=== PATIENT | male | born 1950 | race Caucasian/White ===

== ENCOUNTER 2024-07-21 14:46 | Emergency (ER) | payer MEDICARE, BC, SELFPAY ==
[2024-07-21 14:55] VITALS: BP 167/81; PULSE 89; RESP 20; TEMP 37.2; O2SAT 96; BMI 27.3
--- NOTE | 2024-07-21 15:04 | DI.RAD.S_ITS ---
PROCEDURE: XR CHEST 1V INDICATIONS: Shortness of breath TECHNIQUE: One view of the chest was acquired. COMPARISON: None. FINDINGS: Surgical changes and devices: leadless pacer. Lungs and pleura: Lungs are clear. No pleural effusions or pneumothorax. Mediastinum: Mediastinal contours appear normal. Heart size is normal. Bones and chest wall: No suspicious bony lesions. Overlying soft tissues appear unremarkable. IMPRESSION: No acute cardiopulmonary abnormality is seen. Dictated by: zE Payan M.D. on 07/21/2024 at 15:51 Approved by: Ez Payan M.D. on 07/21/2024 at 15:52
--- NOTE | 2024-07-21 15:04 | EKG_ITS ---
[address] [address] Test Date: 2024-07-21 Pat Name: Carlos Barajas Department: Room: Gender: Male [employer]: : 1950 Requested By: Order Number: [id number] Reading MD: Geoff Bautista MD Measurements Intervals [place] Rate: 91 P: 51 TX: 196 QRS: -1 QRSD: 88 T: 120 QT: 364 QTc: 447 Interpretive Statements Sinus rhythm with occasional premature ventricular complexes Left ventricular hypertrophy with repolarization abnormality ( R in aVL , Les product ) Cannot rule out Septal infarct , age undetermined NO PRIOR TRACING Electronically Signed On 07-22-2024 7:23:37 PDT by Geoff Bautista MD
--- NOTE | 2024-07-21 15:17 | ED_ITS ---
<Statement entered by Holly Rose PA-C - 07/21/24 19:06> Please see same day note by myself for full patient encounter. HPI - General Adult General Chief complaint: Shortness of Breath/Dyspnea Stated complaint: shakes, low oxygen, dizziness, fatigue Time Seen by Provider: 07/21/24 15:17 Mode of arrival: Ambulatory Related Data Home Medications Medication Instructions Recorded Confirmed atorvastatin 20 mg tablet 20 mg PO DAILY 07/21/24 07/21/24 finasteride 5 mg tablet 5 mg PO DAILY 07/21/24 07/21/24 losartan 50 mg tablet 50 mg PO DAILY 07/21/24 07/21/24 metoprolol succinate 25 mg 25 mg PO DAILY 07/21/24 07/21/24 tablet,extended release 24 hr prednisone 1 mg tablet 4 mg PO DAILY 07/21/24 07/21/24 tamsulosin 0.4 mg capsule mg PO 07/21/24 07/21/24 Previous Rx's Medication Instructions Recorded cefuroxime axetil 500 mg tablet 500 mg PO Q12H 7 days #14 tabs 07/21/24 doxycycline hyclate 100 mg tablet 100 mg PO BID 7 days #14 tabs 07/21/24 Allergies Allergy/AdvReac Type Severity Reaction Status Date / Time Penicillins AdvReac Intermediate Rash Verified 07/21/24 18:11 Patient History Social History Smoking Status: Former smoker Smoking Status: Former smoker Exam Initial Vital Signs Initial Vital Signs: Vital Signs Temperature 99 F 07/21/24 14:55 Pulse Rate 89 07/21/24 14:55 Respiratory Rate 20 07/21/24 14:55 Blood Pressure 167/81 H 07/21/24 14:55 Pulse Oximetry 96 07/21/24 14:55 Oxygen Delivery Method Room Air 07/21/24 14:55 Course Course Course Narrative: Pt was evaluated in [facility] initially by PRIMITIVO Barry and supervised by Dr. Duarte in the ED. Please see separate note for this encounter. Bo Shah MD Orders Ordered: Discontinued Medications Acetaminophen (Acetaminophen 325 Mg Tablet) 975 mg PO NOW ONE Stop: 07/21/24 16:21 Last Admin: 07/21/24 16:46 Dose: 975 mg Documented By: SB Cefuroxime Axetil (Cefuroxime 250 Mg Tablet) 500 mg PO NOW ONE Stop: 07/21/24 18:06 Last Admin: 07/21/24 18:14 Dose: 500 mg Documented By: ENRRIQUE Doxycycline Hyclate (Doxycycline Hyclate 100 Mg Tablet) 100 mg PO NOW ONE Stop: 07/21/24 18:06 Last Admin: 07/21/24 18:18 Dose: 100 mg Documented By: ENRRIQUE Vital Signs Vital signs: Vital Signs - 8 hr 07/21/24 14:55 Temperature 99 F Pulse Rate 89 Respiratory Rate 20 Blood Pressure 167/81 H Pulse Oximetry 96 Oxygen Delivery Method Room Air Medical Decision Making Lab Data 07/21/24 15:15 07/21/24 15:15 Labs: Lab Results 07/21/24 07/21/24 07/21/24 Range/Units 15:15 15:30 16:54 WBC 11.8 H (4.5-11.0) X10^3/uL RBC 4.14 L (4.5-5.9) X10^6/uL Hgb 14.5 (13.5-17.5) g/dL Hct 42.8 (41-53) % MCV 103.5 H (80-100) fL MCH 35.1 H (26-34) PG MCHC 33.9 (30-36) % RDW 13.3 (11.6-14.8) % Plt Count 139 L (150-400) X10^3/uL Neut % (Auto) 85.5 H (50-75) % Lymph % (Auto) 7.2 L (25-40) % [place] % (Auto) 5.8 (3-14) % Eos % (Auto) 1.2 L (2-4) % Baso % (Auto) 0.3 (0-2) % Neut # (Auto) 51135 H (2173-5334) /uL Lymph # (Auto) 800 L (7320-1817) /uL [place] # (Auto) 700 (0-900) /uL Eos # (Auto) 100 (0-450) /uL Baso # (Auto) 0 (0-100) /uL PT 13.5 H (9.4-12.5) SECONDS INR 1.2 (0.9-1.3) D-Dimer 522 H (<500) ng/ml Sodium 139 (137-145) mmol/L Potassium 4.6 (3.4-5.1) mmol/L Chloride 104 (98-107) mmol/L Carbon Dioxide 25 (22-32) mmol/L BUN 24 H (9-20) mg/dL Creatinine 1.07 (0.66-1.25) mg/dL Estimated GFR > 60 (>60) mL/min BUN/Creatinine Ratio 22.4 H (6-22) Glucose 100 H (70-99) mg/dL Lactate 1.7 (0.7-2.1) mmol/L Calcium 9.5 (8.4-10.2) mg/dL Total Bilirubin 1.9 H (0.2-1.3) mg/dL AST 36 (17-59) IU/L ALT 31 (<50) IU/L Alkaline Phosphatase 53 (38-126) U/L Troponin I < 0.012 (0.01-0.034) ng/mL NT-Pro-B Natriuret Pep 972 H (<450) pg/mL Total Protein 7.6 (6.3-8.2) g/dL Albumin 4.7 (3.5-5.0) g/dL Globulin 2.9 (1.7-4.1) g/dL Albumin/Globulin Ratio 1.6 (1.0-2.8) Urine Color Yellow Urine Appearance Clear Urine pH 5.5 (4.5-8.0) Ur Specific [place] 1.025 (1.000-1.035) Urine Protein Negative (Negative) Urine Glucose (UA) Negative (Negative) g/dL Urine Ketones 1+ H (NEGATIVE) Urine Occult Blood Negative (Negative) Urine Nitrate Negative (Negative) Urine Bilirubin Negative (NEGATIVE) Urine Urobilinogen 0.2 (0.2) E.U./dL Ur Leukocyte Esterase Negative (NEGATIVE) Urine RBC None seen (0-5/HPF) Urine WBC 0-1/hpf (0-5/HPF) Ur Squamous Epith Cells 0-1 /hpf (0-5/HPF) Urine Bacteria None seen (None) Ur Culture Indicated? Cult not indicated Vol Urine Centrifuged 10ml (spun) SARS-CoV-2 (PCR) Negative (Negative) Influenza A (RT-PCR) Flu a negative (NEGATIVE) Influenza B (RT-PCR) Flu b negative (NEGATIVE) RSV (PCR) Negative (Negative) 07/21/24 Range/Units 17:31 WBC (4.5-11.0) X10^3/uL RBC (4.5-5.9) X10^6/uL Hgb (13.5-17.5) g/dL Hct (41-53) % MCV (80-100) fL MCH (26-34) PG MCHC (30-36) % RDW (11.6-14.8) % Plt Count (150-400) X10^3/uL Neut % (Auto) (50-75) % Lymph % (Auto) (25-40) % [place] % (Auto) (3-14) % Eos % (Auto) (2-4) % Baso % (Auto) (0-2) % Neut # (Auto) (1743-8922) /uL Lymph # (Auto) (0751-7679) /uL [place] # (Auto) (0-900) /uL Eos # (Auto) (0-450) /uL Baso # (Auto) (0-100) /uL PT (9.4-12.5) SECONDS INR (0.9-1.3) D-Dimer (<500) ng/ml Sodium (137-145) mmol/L Potassium (3.4-5.1) mmol/L Chloride (98-107) mmol/L Carbon Dioxide (22-32) mmol/L BUN (9-20) mg/dL Creatinine (0.66-1.25) mg/dL Estimated GFR (>60) mL/min BUN/Creatinine Ratio (6-22) Glucose (70-99) mg/dL Lactate (0.7-2.1) mmol/L Calcium (8.4-10.2) mg/dL Total Bilirubin (0.2-1.3) mg/dL AST (17-59) IU/L ALT (<50) IU/L Alkaline Phosphatase (38-126) U/L Troponin I 0.012 (0.01-0.034) ng/mL NT-Pro-B Natriuret Pep (<450) pg/mL Total Protein (6.3-8.2) g/dL Albumin (3.5-5.0) g/dL Globulin (1.7-4.1) g/dL Albumin/Globulin Ratio (1.0-2.8) Urine Color Urine Appearance Urine pH (4.5-8.0) Ur Specific [place] (1.000-1.035) Urine Protein (Negative) Urine Glucose (UA) (Negative) g/dL Urine Ketones (NEGATIVE) Urine Occult Blood (Negative) Urine Nitrate (Negative) Urine Bilirubin (NEGATIVE) Urine Urobilinogen (0.2) E.U./dL Ur Leukocyte Esterase (NEGATIVE) Urine RBC (0-5/HPF) Urine WBC (0-5/HPF) Ur Squamous Epith Cells (0-5/HPF) Urine Bacteria (None) Ur Culture Indicated? Vol Urine Centrifuged SARS-CoV-2 (PCR) (Negative) Influenza A (RT-PCR) (NEGATIVE) Influenza B (RT-PCR) (NEGATIVE) RSV (PCR) (Negative) ECG Data Attestation: I personally reviewed and interpreted this ECG as follows: (1509 - NSR @ 91; occasional PVC; LVH, nonspecific STTW changes; QTc 447) Discharge Plan Departure Patient Disposition: Home Clinical Impression: Elevated brain natriuretic peptide (BNP) level Pneumonia Qualifiers: Pneumonia type: due to unspecified organism Laterality: bilateral Lung location: unspecified part of lung Qualified Code(s): J18.9 - Pneumonia, unspecified organism Instructions: DI for Pneumonia -- Adult Activity Restrictions/Additional Instructions: Dear Callie Karl, Thank you for coming to the emergency department. Today we obtained a CT scan of your chest which revealed pneumonia in both lungs. Please complete the full 7 day course of antibiotics to treat this infection. Your workup today also revealed some chronic abnormalities such as an elevated BNP level and coronary artery calcifications. It is very important to follow up with a primary care doctor who may refer you to a supervisor carding for further evaluation and chronic management. Please return to the emergency department immediately if you develop any new or worsening symptoms, chest pain, difficulty breathing, or other concerns. In addition to your prescriptions, please rest, hydrate, use ibuprofen and/or acetaminophen if needed for pain. Your antibiotics have been sent to [facility] pharmacy. Please follow up with your primary care doctor within the next 2-3 days for ER follow-up. (If you do not have a PCP you can call [phone]. to schedule an appointment with an [facility] Primary Care Provider) IF YOU DEVELOP ANY NEW OR WORSENING SYMPTOMS, RETURN TO THE ER! Please read the attached instructions, they highlight more specific treatments and interventions for you at home. Thank you for letting me participate in your care, Holly Rose PA-C Prescriptions: New doxycycline hyclate 100 mg tablet 100 mg PO BID 7 Days Qty: 14 0RF cefuroxime axetil 500 mg tablet 500 mg PO Q12H 7 Days Qty: 14 0RF No Action atorvastatin 20 mg tablet 20 mg PO DAILY losartan 50 mg tablet 50 mg PO DAILY prednisone 1 mg tablet 4 mg PO DAILY metoprolol succinate 25 mg tablet extended release 24 hr 25 mg PO DAILY finasteride 5 mg tablet 5 mg PO DAILY tamsulosin 0.4 mg capsule PO Referrals: Miscellaneous,Doctor, MD [Primary Care Provider] - Stand Alone Forms: Patient Portal/API/Survey
[2024-07-21 15:23] LABS: Add Manual Diff / Slide Review NO; Basophils Absolute Auto 0 /uL (0-100); Basophils Percent Auto 0.3 % (0-2); Eosinophils Absolute Auto 100 /uL (0-450); Eosinophils Percent Auto 1.2 % (2-4); Hematocrit 42.8 % (41-53); Hemoglobin 14.5 g/dL (13.5-17.5); Lymphocytes Absolute Auto 800 /uL (1100-4500); Lymphocytes Percent Auto 7.2 % (25-40); Mean Corpuscular HGB Conc 33.9 % (30-36); Mean Corpuscular Hemoglobin 35.1 PG (26-34); Mean Corpuscular Volume 103.5 fL (80-100); Monocytes Absolute Auto 700 /uL (0-900); Monocytes Percent Auto 5.8 % (3-14); Neutrophils Absolute Auto 10100 /uL (1500-7000); Neutrophils Percent Auto 85.5 % (50-75); Platelet Count 139 X10^3/uL (150-400); Red Blood Cell Count 4.14 X10^6/uL (4.5-5.9); Red Cell Distribution Width 13.3 % (11.6-14.8); White Blood Cell Count 11.8 X10^3/uL (4.5-11.0)
[2024-07-21 15:32] LABS: INR 1.2 (0.9-1.3); Prothrombin Time 13.5 SECONDS (9.4-12.5)
[2024-07-21 15:37] LABS: Lactate (Lactic Acid) 1.7 mmol/L (0.7-2.1)
[2024-07-21 15:38] LABS: Alanine Aminotransferase 31 IU/L (<50); Albumin 4.7 g/dL (3.5-5.0); Albumin Globulin Ratio 1.6 (1.0-2.8); Alkaline Phosphatase 53 U/L (38-126); Aspartate Aminotransferase 36 IU/L (17-59); BUN Creatinine Ratio 22.4 (6-22); Bilirubin Total 1.9 mg/dL (0.2-1.3); Blood Urea Nitrogen 24 mg/dL (9-20); Calcium 9.5 mg/dL (8.4-10.2); Carbon Dioxide 25 mmol/L (22-32); Chloride 104 mmol/L (98-107); Estimated Glomerular Filt Rate > 60 mL/min (>60); Globulin 2.9 g/dL (1.7-4.1); Glucose 100 mg/dL (70-99); HEMOLYSIS < 15 (0-50); Potassium 4.6 mmol/L (3.4-5.1); Sodium 139 mmol/L (137-145); Total Protein 7.6 g/dL (6.3-8.2)
--- NOTE | 2024-07-21 15:47 | ED.SOB ---
HPI - SOB/Dyspnea <Holly Rose PA-C - Last Filed: 07/21/24 18:59> General Chief Complaint: Shortness of Breath/Dyspnea Stated Complaint: shakes, low oxygen, dizziness, fatigue Time Seen by Provider: 07/21/24 15:17 Mode of arrival: Ambulatory History of Present Illness HPI Narrative: Mr. Barajas is a pleasant 73-year-old male with a past medical history of hemochromatosis, hypertension, cardiac ablation, BPH who presents to the emergency department for cough and shortness of breath x1 week. Patient states he was around his 25-year-old son who is also sick with an upper respiratory infection and was treated with antibiotics. States that he has not had any documented fever but today he did feel warm/chills. He had a headache this morning which was relieved with Tylenol. Reports that it 1st his cough was extremely productive but now it is a dry cough. He denies any chest pain, abdominal pain or other pain at this time. Reports he feels more short of breath than usual, denies any lower extremity swelling. States that his cough is worse when lying flat at night. Also states that he has had occasional lightheadedness and that he has not had his phlebotomy for his hemochromatosis in some time. He is currently living on a boat and sees a primary care provider infrequently, he is from [place] and flew here 2 months ago. Related Data Home Medications Medication Instructions Recorded Confirmed atorvastatin 20 mg tablet 20 mg PO DAILY 07/21/24 07/21/24 finasteride 5 mg tablet 5 mg PO DAILY 07/21/24 07/21/24 losartan 50 mg tablet 50 mg PO DAILY 07/21/24 07/21/24 metoprolol succinate 25 mg 25 mg PO DAILY 07/21/24 07/21/24 tablet,extended release 24 hr prednisone 1 mg tablet 4 mg PO DAILY 07/21/24 07/21/24 tamsulosin 0.4 mg capsule mg PO 07/21/24 07/21/24 Previous Rx's Medication Instructions Recorded cefuroxime axetil 500 mg tablet 500 mg PO Q12H 7 days #14 tabs 07/21/24 doxycycline hyclate 100 mg tablet 100 mg PO BID 7 days #14 tabs 07/21/24 Allergies Allergy/AdvReac Type Severity Reaction Status Date / Time Penicillins AdvReac Intermediate Rash Verified 07/21/24 18:11 Review of Systems <Holly Rose PA-C - Last Filed: 07/21/24 18:59> Review of Systems ROS Unobtainable: All systems reviewed & are unremarkable except as noted in HPI and below Patient History <Holly Rose PA-C - Last Filed: 07/21/24 18:59> Social History Smoking Status: Former smoker Smoking Status: Former smoker Exam <Holly Rose PA-C - Last Filed: 07/21/24 18:59> Narrative Exam Narrative: GENERAL: 73 year old patient appears stated age. Well-developed patient, in no acute distress. HEAD: Atraumatic. Normocephalic. EYES: PERRL. Extraocular motions intact. No scleral icterus. No injection or drainage. NECK: Trachea midline. Cervical ROM intact. CARDIOVASCULAR: Regular rate and rhythm. RESPIRATORY: Nonlabored respirations. Speaking in clear, full sentences. Coarse inspiratory breath sounds in bilateral upper lobes, worse on the left. Frequent dry cough. GASTROINTESTINAL: Abdomen soft, non-tender, nondistended. EXTREMITIES: No edema or joint tenderness. Strong bilateral PT pulses. NEURO: AOx3. Clear speech. Moves all 4 extremities appropriately. SKIN: No rash or erythema of visible areas Initial Vital Signs Initial Vital Signs: Vital Signs Temperature 99 F 07/21/24 14:55 Pulse Rate 89 07/21/24 14:55 Respiratory Rate 20 07/21/24 14:55 Blood Pressure 167/81 H 07/21/24 14:55 Pulse Oximetry 96 07/21/24 14:55 Oxygen Delivery Method Room Air 07/21/24 14:55 <Marcos Duarte MD - Last Filed: 07/22/24 04:41> Initial Vital Signs Initial Vital Signs: Vital Signs Temperature 99 F 07/21/24 14:55 Pulse Rate 89 07/21/24 14:55 Respiratory Rate 20 07/21/24 14:55 Blood Pressure 167/81 H 07/21/24 14:55 Pulse Oximetry 96 07/21/24 14:55 Oxygen Delivery Method Room Air 07/21/24 14:55 Scores <Holly Rose PA-C - Last Filed: 07/21/24 18:59> HEART Score Heart Score history: Slightly Suspicious Heart Score EKG: Non-Specific repolarization disturbance Heart Score Age: > or = 65 years old Heart Score risk factors: 1-2 risk factors Heart Score troponin: < or = to normal limit Heart Score Total: 4 <Marcos Duarte MD - Last Filed: 07/22/24 04:41> HEART Score Heart Score Total: 4 Course <Holly Rose PA-C - Last Filed: 07/21/24 18:59> Orders Ordered: Discontinued Medications Acetaminophen (Acetaminophen 325 Mg Tablet) 975 mg PO NOW ONE Stop: 07/21/24 16:21 Last Admin: 07/21/24 16:46 Dose: 975 mg Documented By: SB Cefuroxime Axetil (Cefuroxime 250 Mg Tablet) 500 mg PO NOW ONE Stop: 07/21/24 18:06 Last Admin: 07/21/24 18:14 Dose: 500 mg Documented By: SB Doxycycline Hyclate (Doxycycline Hyclate 100 Mg Tablet) 100 mg PO NOW ONE Stop: 07/21/24 18:06 Last Admin: 07/21/24 18:18 Dose: 100 mg Documented By: SB Vital Signs Vital signs: Vital Signs - 8 hr 07/21/24 14:55 07/21/24 17:07 07/21/24 17:18 Temperature 99 F 98.3 F Pulse Rate 89 80 75 Respiratory Rate 20 16 20 Blood Pressure 167/81 H 154/72 H 150/69 H Pulse Oximetry 96 98 95 Oxygen Delivery Method Room Air Room Air 07/21/24 17:30 07/21/24 18:00 Temperature 98.4 F Pulse Rate 79 76 Respiratory Rate 20 18 Blood Pressure 142/67 H 146/76 H Pulse Oximetry 94 95 Oxygen Delivery Method Room Air <Marcos Duarte MD - Last Filed: 07/22/24 04:41> Orders Ordered: Discontinued Medications Acetaminophen (Acetaminophen 325 Mg Tablet) 975 mg PO NOW ONE Stop: 07/21/24 16:21 Last Admin: 07/21/24 16:46 Dose: 975 mg Documented By: SB Cefuroxime Axetil (Cefuroxime 250 Mg Tablet) 500 mg PO NOW ONE Stop: 07/21/24 18:06 Last Admin: 07/21/24 18:14 Dose: 500 mg Documented By: SB Doxycycline Hyclate (Doxycycline Hyclate 100 Mg Tablet) 100 mg PO NOW ONE Stop: 07/21/24 18:06 Last Admin: 07/21/24 18:18 Dose: 100 mg Documented By: ENRRIQUE Vital Signs Vital signs: Vital Signs - 8 hr 07/21/24 14:55 07/21/24 17:07 07/21/24 17:18 Temperature 99 F 98.3 F Pulse Rate 89 80 75 Respiratory Rate 20 16 20 Blood Pressure 167/81 H 154/72 H 150/69 H Pulse Oximetry 96 98 95 Oxygen Delivery Method Room Air Room Air 07/21/24 17:30 07/21/24 18:00 Temperature 98.4 F Pulse Rate 79 76 Respiratory Rate 20 18 Blood Pressure 142/67 H 146/76 H Pulse Oximetry 94 95 Oxygen Delivery Method Room Air MDM - SOB/Dyspnea <Holly Rose PA-C - Last Filed: 07/21/24 18:59> Medical Records Attestation: I reviewed the patient's medical records. Medical records narrative: [facility] visit earlier today Lab Data 07/21/24 15:15 07/21/24 15:15 Labs: Lab Results 07/21/24 07/21/24 07/21/24 Range/Units 15:15 15:30 16:54 WBC 11.8 H (4.5-11.0) X10^3/uL RBC 4.14 L (4.5-5.9) X10^6/uL Hgb 14.5 (13.5-17.5) g/dL Hct 42.8 (41-53) % MCV 103.5 H (80-100) fL MCH 35.1 H (26-34) PG MCHC 33.9 (30-36) % RDW 13.3 (11.6-14.8) % Plt Count 139 L (150-400) X10^3/uL Neut % (Auto) 85.5 H (50-75) % Lymph % (Auto) 7.2 L (25-40) % [place] % (Auto) 5.8 (3-14) % Eos % (Auto) 1.2 L (2-4) % Baso % (Auto) 0.3 (0-2) % Neut # (Auto) 75080 H (7685-9276) /uL Lymph # (Auto) 800 L (7146-8488) /uL [place] # (Auto) 700 (0-900) /uL Eos # (Auto) 100 (0-450) /uL Baso # (Auto) 0 (0-100) /uL PT 13.5 H (9.4-12.5) SECONDS INR 1.2 (0.9-1.3) D-Dimer 522 H (<500) ng/ml Sodium 139 (137-145) mmol/L Potassium 4.6 (3.4-5.1) mmol/L Chloride 104 (98-107) mmol/L Carbon Dioxide 25 (22-32) mmol/L BUN 24 H (9-20) mg/dL Creatinine 1.07 (0.66-1.25) mg/dL Estimated GFR > 60 (>60) mL/min BUN/Creatinine Ratio 22.4 H (6-22) Glucose 100 H (70-99) mg/dL Lactate 1.7 (0.7-2.1) mmol/L Calcium 9.5 (8.4-10.2) mg/dL Total Bilirubin 1.9 H (0.2-1.3) mg/dL AST 36 (17-59) IU/L ALT 31 (<50) IU/L Alkaline Phosphatase 53 (38-126) U/L Troponin I < 0.012 (0.01-0.034) ng/mL NT-Pro-B Natriuret Pep 972 H (<450) pg/mL Total Protein 7.6 (6.3-8.2) g/dL Albumin 4.7 (3.5-5.0) g/dL Globulin 2.9 (1.7-4.1) g/dL Albumin/Globulin Ratio 1.6 (1.0-2.8) Urine Color Yellow Urine Appearance Clear Urine pH 5.5 (4.5-8.0) Ur Specific [place] 1.025 (1.000-1.035) Urine Protein Negative (Negative) Urine Glucose (UA) Negative (Negative) g/dL Urine Ketones 1+ H (NEGATIVE) Urine Occult Blood Negative (Negative) Urine Nitrate Negative (Negative) Urine Bilirubin Negative (NEGATIVE) Urine Urobilinogen 0.2 (0.2) E.U./dL Ur Leukocyte Esterase Negative (NEGATIVE) Urine RBC None seen (0-5/HPF) Urine WBC 0-1/hpf (0-5/HPF) Ur Squamous Epith Cells 0-1 /hpf (0-5/HPF) Urine Bacteria None seen (None) Ur Culture Indicated? Cult not indicated Vol Urine Centrifuged 10ml (spun) SARS-CoV-2 (PCR) Negative (Negative) Influenza A (RT-PCR) Flu a negative (NEGATIVE) Influenza B (RT-PCR) Flu b negative (NEGATIVE) RSV (PCR) Negative (Negative) 07/21/24 Range/Units 17:31 WBC (4.5-11.0) X10^3/uL RBC (4.5-5.9) X10^6/uL Hgb (13.5-17.5) g/dL Hct (41-53) % MCV (80-100) fL MCH (26-34) PG MCHC (30-36) % RDW (11.6-14.8) % Plt Count (150-400) X10^3/uL Neut % (Auto) (50-75) % Lymph % (Auto) (25-40) % [place] % (Auto) (3-14) % Eos % (Auto) (2-4) % Baso % (Auto) (0-2) % Neut # (Auto) (1858-0416) /uL Lymph # (Auto) (0660-2053) /uL [place] # (Auto) (0-900) /uL Eos # (Auto) (0-450) /uL Baso # (Auto) (0-100) /uL PT (9.4-12.5) SECONDS INR (0.9-1.3) D-Dimer (<500) ng/ml Sodium (137-145) mmol/L Potassium (3.4-5.1) mmol/L Chloride (98-107) mmol/L Carbon Dioxide (22-32) mmol/L BUN (9-20) mg/dL Creatinine (0.66-1.25) mg/dL Estimated GFR (>60) mL/min BUN/Creatinine Ratio (6-22) Glucose (70-99) mg/dL Lactate (0.7-2.1) mmol/L Calcium (8.4-10.2) mg/dL Total Bilirubin (0.2-1.3) mg/dL AST (17-59) IU/L ALT (<50) IU/L Alkaline Phosphatase (38-126) U/L Troponin I 0.012 (0.01-0.034) ng/mL NT-Pro-B Natriuret Pep (<450) pg/mL Total Protein (6.3-8.2) g/dL Albumin (3.5-5.0) g/dL Globulin (1.7-4.1) g/dL Albumin/Globulin Ratio (1.0-2.8) Urine Color Urine Appearance Urine pH (4.5-8.0) Ur Specific [place] (1.000-1.035) Urine Protein (Negative) Urine Glucose (UA) (Negative) g/dL Urine Ketones (NEGATIVE) Urine Occult Blood (Negative) Urine Nitrate (Negative) Urine Bilirubin (NEGATIVE) Urine Urobilinogen (0.2) E.U./dL Ur Leukocyte Esterase (NEGATIVE) Urine RBC (0-5/HPF) Urine WBC (0-5/HPF) Ur Squamous Epith Cells (0-5/HPF) Urine Bacteria (None) Ur Culture Indicated? Vol Urine Centrifuged SARS-CoV-2 (PCR) (Negative) Influenza A (RT-PCR) (NEGATIVE) Influenza B (RT-PCR) (NEGATIVE) RSV (PCR) (Negative) Imaging Data Chest x-ray: Radiologist's Impression: PROCEDURE: XR CHEST 1V INDICATIONS: Shortness of breath TECHNIQUE: One view of the chest was acquired. COMPARISON: None. FINDINGS: Surgical changes and devices: leadless pacer. Lungs and pleura: Lungs are clear. No pleural effusions or pneumothorax. Mediastinum: Mediastinal contours appear normal. Heart size is normal. Bones and chest wall: No suspicious bony lesions. Overlying soft tissues appear unremarkable. IMPRESSION: No acute cardiopulmonary abnormality is seen. CTA Chest: Radiologist's Impression: PROCEDURE: CT ANGIO CHEST PE PROTOCOL INDICATIONS: SOB TECHNIQUE: After the administration of intravenous contrast, 2 mm thick sections acquired from the pulmonary apices to the posterior costophrenic angles. 3-dimensional maximum intensity projection (MIP) coronal and sagittal reformats were then acquired through the thorax. For radiation dose reduction, the following was used: automated exposure control, adjustment of mA and/or kV according to patient size. COMPARISON: [facility], , XR CHEST 1V, 07/21/2024, 15:26. FINDINGS: Image quality: Diagnostic. Pulmonary arteries: Pulmonary arteries are normal in size, and demonstrate no intraluminal filling defects to suggest central pulmonary embolism. Lower Neck: No enlarged lymph nodes. Thyroid: No thyroid nodules which require sonographic follow up, per consensus guidelines. Axillae: No enlarged lymph nodes. Chest Wall: Lead less pacer is seen. Bones: No aggressive appearing bony lesions. Lungs and Pleura: No pneumothorax or pleural effusions. Moderate size airspace opacity is seen in posterior medial aspect of left lower lobe extending to left hilar region. Small infiltrate versus atelectasis in posterior medial aspect of right lower lobe is also seen near right lung base. Small airspace opacity is also noted in posterior aspect of left lingular segment near left lung base. Heart: Heart size is enlarged. No pericardial effusion. Thoracic Vessels: No aortic aneurysm. 3 vessel coronary artery atherosclerotic calcifications are seen. Mediastinum and [place]: No enlarged lymph nodes. Esophagus: No wall thickening. Moderate sized hiatal hernia. Upper Abdomen: Lobulated hypodense area involving medial segment of left hepatic lobe is seen and may represent attic cyst series 4, image 163. No abnormality is seen in visualized portion of spleen, pancreas, and bilateral kidneys. IMPRESSION: 1. No pulmonary embolus. No thoracic aortic aneurysm or gross dissection. 2. Moderate-sized left lower lobe infiltrate. Smaller infiltrates are also seen in posterior medial aspect of right lower lobe and low posterior aspect of left lingular segment. No pleural effusion or pneumothorax. 3. Cardiomegaly, no pericardial effusion. Moderate to severe 3 vessel coronary artery atherosclerotic calcifications. No mediastinal or hilar lymphadenopathy. [facility] Narrative Medical decision making narrative: 73-year-old male with a past medical history of hemochromatosis, hypertension, cardiac ablation, BPH who presents to the emergency department for cough and shortness of breath x1 week. Differential diagnosis includes but is not limited to viral syndrome, pneumonia, pleural effusion, CHF, PE, etc. On exam the patient is in no acute distress, nontoxic appearing, vital signs appropriate except for mildly elevated blood pressure. He has been having worsening cough and shortness of breath over the last week with concerns of fever today, recent sick exposure to his son. Workup initiated in triage revealing a negative chest x-ray. Labs reveal elevated WBC count 11.8, decreased platelets 139, elevated neutrophil of 85.5%. BUN 24 creatinine 1.07. Glucose 100. Lactate negative at 1.7. Troponin <0.012, repeat 0.012. BNP elevated at 972. Will add on D-Dimer which was slightly elevated so CTA ordered. CTA reveals no PE. There is a moderate size left lower lobe infiltrate. Smaller infiltrates are also seen in the posterior medial aspect of the right lower lobe and low posterior aspect of the left lingular segment. No pleural effusion or pneumothorax. There is cardiomegaly, no pericardial effusion. There is moderate to severe three-vessel coronary artery atherosclerotic calcifications. No mediastinal or hilar lymphadenopathy. Case discussed with attending, Dr. Duarte. Lab work, imaging, physical exam all consistent with bacterial pneumonia. Patient is a nonsmoker, Vital signs all appropriate, no increased work breathing. He is allergic to penicillins therefore we will treat with cefuroxime and doxycycline b.i.d. x7 days. Recommended rest, hydration, ibuprofen / acetaminophen, supportive care. I did discuss all lab work and imaging findings with the patient and provided him with printed copy of his CTA. We discussed his elevated BNP, his coronary artery calcifications, and the importance of following up promptly with PCP and cardiology for further evaluation, he may benefit from an echo as he states his last was about 5 years ago. patient is feeling well, eager for discharge home. At no point has he experienced chest pain but we did discuss very strict ED return precautions. He verbalized understanding of all information is agreeable with the plan, he is stable for discharge home. <Marcos Duarte MD - Last Filed: 07/22/24 04:41> Lab Data Labs: Lab Results 07/21/24 07/21/24 07/21/24 Range/Units 15:15 15:30 16:54 WBC 11.8 H (4.5-11.0) X10^3/uL RBC 4.14 L (4.5-5.9) X10^6/uL Hgb 14.5 (13.5-17.5) g/dL Hct 42.8 (41-53) % MCV 103.5 H (80-100) fL MCH 35.1 H (26-34) PG MCHC 33.9 (30-36) % RDW 13.3 (11.6-14.8) % Plt Count 139 L (150-400) X10^3/uL Neut % (Auto) 85.5 H (50-75) % Lymph % (Auto) 7.2 L (25-40) % [place] % (Auto) 5.8 (3-14) % Eos % (Auto) 1.2 L (2-4) % Baso % (Auto) 0.3 (0-2) % Neut # (Auto) 31796 H (1673-6983) /uL Lymph # (Auto) 800 L (1394-0842) /uL [place] # (Auto) 700 (0-900) /uL Eos # (Auto) 100 (0-450) /uL Baso # (Auto) 0 (0-100) /uL PT 13.5 H (9.4-12.5) SECONDS INR 1.2 (0.9-1.3) D-Dimer 522 H (<500) ng/ml Sodium 139 (137-145) mmol/L Potassium 4.6 (3.4-5.1) mmol/L Chloride 104 (98-107) mmol/L Carbon Dioxide 25 (22-32) mmol/L BUN 24 H (9-20) mg/dL Creatinine 1.07 (0.66-1.25) mg/dL Estimated GFR > 60 (>60) mL/min BUN/Creatinine Ratio 22.4 H (6-22) Glucose 100 H (70-99) mg/dL Lactate 1.7 (0.7-2.1) mmol/L Calcium 9.5 (8.4-10.2) mg/dL Total Bilirubin 1.9 H (0.2-1.3) mg/dL AST 36 (17-59) IU/L ALT 31 (<50) IU/L Alkaline Phosphatase 53 (38-126) U/L Troponin I < 0.012 (0.01-0.034) ng/mL NT-Pro-B Natriuret Pep 972 H (<450) pg/mL Total Protein 7.6 (6.3-8.2) g/dL Albumin 4.7 (3.5-5.0) g/dL Globulin 2.9 (1.7-4.1) g/dL Albumin/Globulin Ratio 1.6 (1.0-2.8) Urine Color Yellow Urine Appearance Clear Urine pH 5.5 (4.5-8.0) Ur Specific [place] 1.025 (1.000-1.035) Urine Protein Negative (Negative) Urine Glucose (UA) Negative (Negative) g/dL Urine Ketones 1+ H (NEGATIVE) Urine Occult Blood Negative (Negative) Urine Nitrate Negative (Negative) Urine Bilirubin Negative (NEGATIVE) Urine Urobilinogen 0.2 (0.2) E.U./dL Ur Leukocyte Esterase Negative (NEGATIVE) Urine RBC None seen (0-5/HPF) Urine WBC 0-1/hpf (0-5/HPF) Ur Squamous Epith Cells 0-1 /hpf (0-5/HPF) Urine Bacteria None seen (None) Ur Culture Indicated? Cult not indicated Vol Urine Centrifuged 10ml (spun) SARS-CoV-2 (PCR) Negative (Negative) Influenza A (RT-PCR) Flu a negative (NEGATIVE) Influenza B (RT-PCR) Flu b negative (NEGATIVE) RSV (PCR) Negative (Negative) 07/21/24 Range/Units 17:31 WBC (4.5-11.0) X10^3/uL RBC (4.5-5.9) X10^6/uL Hgb (13.5-17.5) g/dL Hct (41-53) % MCV (80-100) fL MCH (26-34) PG MCHC (30-36) % RDW (11.6-14.8) % Plt Count (150-400) X10^3/uL Neut % (Auto) (50-75) % Lymph % (Auto) (25-40) % [place] % (Auto) (3-14) % Eos % (Auto) (2-4) % Baso % (Auto) (0-2) % Neut # (Auto) (0088-7375) /uL Lymph # (Auto) (3196-2883) /uL [place] # (Auto) (0-900) /uL Eos # (Auto) (0-450) /uL Baso # (Auto) (0-100) /uL PT (9.4-12.5) SECONDS INR (0.9-1.3) D-Dimer (<500) ng/ml Sodium (137-145) mmol/L Potassium (3.4-5.1) mmol/L Chloride (98-107) mmol/L Carbon Dioxide (22-32) mmol/L BUN (9-20) mg/dL Creatinine (0.66-1.25) mg/dL Estimated GFR (>60) mL/min BUN/Creatinine Ratio (6-22) Glucose (70-99) mg/dL Lactate (0.7-2.1) mmol/L Calcium (8.4-10.2) mg/dL Total Bilirubin (0.2-1.3) mg/dL AST (17-59) IU/L ALT (<50) IU/L Alkaline Phosphatase (38-126) U/L Troponin I 0.012 (0.01-0.034) ng/mL NT-Pro-B Natriuret Pep (<450) pg/mL Total Protein (6.3-8.2) g/dL Albumin (3.5-5.0) g/dL Globulin (1.7-4.1) g/dL Albumin/Globulin Ratio (1.0-2.8) Urine Color Urine Appearance Urine pH (4.5-8.0) Ur Specific [place] (1.000-1.035) Urine Protein (Negative) Urine Glucose (UA) (Negative) g/dL Urine Ketones (NEGATIVE) Urine Occult Blood (Negative) Urine Nitrate (Negative) Urine Bilirubin (NEGATIVE) Urine Urobilinogen (0.2) E.U./dL Ur Leukocyte Esterase (NEGATIVE) Urine RBC (0-5/HPF) Urine WBC (0-5/HPF) Ur Squamous Epith Cells (0-5/HPF) Urine Bacteria (None) Ur Culture Indicated? Vol Urine Centrifuged SARS-CoV-2 (PCR) (Negative) Influenza A (RT-PCR) (NEGATIVE) Influenza B (RT-PCR) (NEGATIVE) RSV (PCR) (Negative) Discharge Plan Departure Patient Disposition: Home Clinical Impression: Elevated brain natriuretic peptide (BNP) level Pneumonia Qualifiers: Pneumonia type: due to unspecified organism Laterality: bilateral Lung location: unspecified part of lung Qualified Code(s): J18.9 - Pneumonia, unspecified organism Instructions: DI for Pneumonia -- Adult Activity Restrictions/Additional Instructions: Dear Karl, Thank you for coming to the emergency department. Today we obtained a CT scan of your chest which revealed pneumonia in both lungs. Please complete the full 7 day course of antibiotics to treat this infection. Your workup today also revealed some chronic abnormalities such as an elevated BNP level and coronary artery calcifications. It is very important to follow up with a primary care doctor who may refer you to a neck band maker for further evaluation and chronic management. Please return to the emergency department immediately if you develop any new or worsening symptoms, chest pain, difficulty breathing, or other concerns. In addition to your prescriptions, please rest, hydrate, use ibuprofen and/or acetaminophen if needed for pain. Your antibiotics have been sent to [facility] pharmacy. Please follow up with your primary care doctor within the next 2-3 days for ER follow-up. (If you do not have a PCP you can call [phone]. to schedule an appointment with an [facility] Primary Care Provider) IF YOU DEVELOP ANY NEW OR WORSENING SYMPTOMS, RETURN TO THE ER! Please read the attached instructions, they highlight more specific treatments and interventions for you at home. Thank you for letting me participate in your care, Holly Rose PA-C Prescriptions: New doxycycline hyclate 100 mg tablet 100 mg PO BID 7 Days Qty: 14 0RF cefuroxime axetil 500 mg tablet 500 mg PO Q12H 7 Days Qty: 14 0RF No Action atorvastatin 20 mg tablet 20 mg PO DAILY losartan 50 mg tablet 50 mg PO DAILY prednisone 1 mg tablet 4 mg PO DAILY metoprolol succinate 25 mg tablet extended release 24 hr 25 mg PO DAILY finasteride 5 mg tablet 5 mg PO DAILY tamsulosin 0.4 mg capsule PO Referrals: Miscellaneous,Doctor, [Primary Care Provider] - Stand Alone Forms: Patient Portal/API/Survey ED Sign-out <Marcos Duarte MD - Last Filed: 07/22/24 04:41> Cosign ED Attending Bar Attestation: I was immediately available in the department for consultation. This documentation has been reviewed and I agree with assessment and plan. Supervised by Marcos Duarte MD
[2024-07-21 15:50] LABS: NT-proBNP (BNP-Adult 18+) 972 pg/mL (<450); Troponin I < 0.012 ng/mL (0.01-0.034)
[2024-07-21 16:11] LABS: Influenza A - CEPHEID Flu A NEGATIVE (NEGATIVE); Influenza B - CEPHEID Flu B NEGATIVE (NEGATIVE); Respiratory Syncytial Virus Negative (Negative)
[2024-07-21 16:22] LABS: COVID-19 CEPHEID 4-PLEX PCR Negative (Negative)
[2024-07-21 16:25] LABS: D Dimer 522 ng/ml (<500)
--- NOTE | 2024-07-21 16:39 | DI.CT.S_ITS ---
PROCEDURE: CT ANGIO CHEST PE PROTOCOL INDICATIONS: SOB TECHNIQUE: After the administration of intravenous contrast, 2 mm thick sections acquired from the pulmonary apices to the posterior costophrenic angles. 3-dimensional maximum intensity projection (MIP) coronal and sagittal reformats were then acquired through the thorax. For radiation dose reduction, the following was used: automated exposure control, adjustment of mA and/or kV according to patient size. COMPARISON: [facility], , XR CHEST 1V, 07/21/2024, 15:26. FINDINGS: Image quality: Diagnostic. Pulmonary arteries: Pulmonary arteries are normal in size, and demonstrate no intraluminal filling defects to suggest central pulmonary embolism. Lower Neck: No enlarged lymph nodes. Thyroid: No thyroid nodules which require sonographic follow up, per consensus guidelines. Axillae: No enlarged lymph nodes. Chest Wall: Lead less pacer is seen. Bones: No aggressive appearing bony lesions. Lungs and Pleura: No pneumothorax or pleural effusions. Moderate size airspace opacity is seen in posterior medial aspect of left lower lobe extending to left hilar region. Small infiltrate versus atelectasis in posterior medial aspect of right lower lobe is also seen near right lung base. Small airspace opacity is also noted in posterior aspect of left lingular segment near left lung base. Heart: Heart size is enlarged. No pericardial effusion. Thoracic Vessels: No aortic aneurysm. 3 vessel coronary artery atherosclerotic calcifications are seen. Mediastinum and Rosario: No enlarged lymph nodes. Esophagus: No wall thickening. Moderate sized hiatal hernia. Upper Abdomen: Lobulated hypodense area involving medial segment of left hepatic lobe is seen and may represent attic cyst series 4, image 163. No abnormality is seen in visualized portion of spleen, pancreas, and bilateral kidneys. IMPRESSION: 1. No pulmonary embolus. No thoracic aortic aneurysm or gross dissection. 2. Moderate-sized left lower lobe infiltrate. Smaller infiltrates are also seen in posterior medial aspect of right lower lobe and low posterior aspect of left lingular segment. No pleural effusion or pneumothorax. 3. Cardiomegaly, no pericardial effusion. Moderate to severe 3 vessel coronary artery atherosclerotic calcifications. No mediastinal or hilar lymphadenopathy. Dictated by: Mario Campbell M.D. on 07/21/2024 at 17:24 Approved by: Mario Campbell M.D. on 07/21/2024 at 17:28
[2024-07-21] MEDS: ACETAMINOPHEN 325 MG TABLET 975 MG PO (16:46)
[2024-07-21 17:07] VITALS: BP 154/72; PULSE 80; RESP 16; TEMP 36.8; O2SAT 98
[2024-07-21 17:08] LABS: Appearance Urine UA CLEAR; Bilirubin Urine UA NEGATIVE (NEGATIVE); Color Urine UA YELLOW; Glucose Urine UA NEGATIVE (Negative); Ketones Urine UA 1+ (NEGATIVE); Leukocyte Esterase Urine UA NEGATIVE (NEGATIVE); Nitrite Urine UA NEGATIVE (Negative); Occult Blood Urine UA NEGATIVE (Negative); Protein Urine UA NEGATIVE (Negative); Specific Gravity Urine UA 1.025 (1.000-1.035); Urobilinogen Urine UA 0.2 E.U./dL (0.2); pH Urine UA 5.5 (4.5-8.0)
[2024-07-21 17:14] LABS: Bacteria Urine None Seen; Culture Indicated Urine Cult Not Indicated; RBC Urine None Seen (0-5/HPF); Squamous Epithelial Cell Urine 0-1 /HPF (0-5/HPF); Urine Volume 10mL (spun); WBC Urine 0-1/HPF (0-5/HPF)
[2024-07-21 17:18] VITALS: BP 150/69; PULSE 75; RESP 20; O2SAT 95
[2024-07-21 17:30] VITALS: BP 142/67; PULSE 79; RESP 20; O2SAT 94
[2024-07-21 18:00] VITALS: BP 146/76; PULSE 76; RESP 18; TEMP 36.9; O2SAT 95
[2024-07-21 18:14] LABS: Troponin I 0.012 ng/mL (0.01-0.034)
[2024-07-21] MEDS: cefUROXime 250 MG TABLET 500 MG PO (18:14)
[2024-07-21] MEDS: DOXYCYCLINE HYCLATE 100 MG TABLET PO (18:18)
== END 2024-07-21 18:40 | disposition home or self-care (01) ==
PROVIDERS: Emergency Medicine; Emergency Provider Physician Assistant
DX: J18.9 Pneumonia, unspecified organism (principal); I25.10 Atherosclerotic heart disease of native coronary artery without angina pectoris; R79.89 Other specified abnormal findings of blood chemistry; I10 Essential (primary) hypertension; Z87.891 Personal history of nicotine dependence
CPT/HCPCS: 0241U; 36415; 71045; 71275; 80053; 81001; 83605; 83880; 84484; 85025; 85379; 85610; 93005; 93010; 99284

== ENCOUNTER → 2024-08-10 15:36 | Outpatient (CLI) | payer MEDICARE, BC, SELFPAY ==
--- NOTE | 2024-08-10 15:41 | DI.RAD.S_ITS ---
PROCEDURE: XR CHEST 2V INDICATIONS: F/U AFTER PNEUMONIA TECHNIQUE: 2 views of the chest were acquired. COMPARISON: [facility], , XR CHEST 1V, 07/21/2024, 15:26. FINDINGS: Surgical changes and devices: Presume cine loop recorder. Lungs and pleura: No visualized infiltrate. However, it is noted it was better visualized on prior CT chest as opposed to x-ray. No pleural effusions or pneumothorax. Mediastinum: Mediastinal contours are normal. Heart size is enlarged. Bones and chest wall: No suspicious bony abnormalities. Soft tissues appear unremarkable. IMPRESSION: No visualized infiltrate. Dictated by: Jacquelyn Kline M.D. on 08/11/2024 at 11:45 Approved by: Jacquelyn Kline M.D. on 08/11/2024 at 11:46
[2024-08-10 16:23] LABS: Hematocrit 41.6 % (41-53); Hemoglobin 14.2 g/dL (13.5-17.5); Mean Corpuscular HGB Conc 34.1 % (30-36); Mean Corpuscular Hemoglobin 35.4 PG (26-34); Mean Corpuscular Volume 103.8 fL (80-100); Platelet Count 177 X10^3/uL (150-400); Red Blood Cell Count 4.01 X10^6/uL (4.5-5.9); Red Cell Distribution Width 13.9 % (11.6-14.8); White Blood Cell Count 5.5 X10^3/uL (4.5-11.0)
[2024-08-10 16:57] LABS: Alanine Aminotransferase 31 IU/L (<50); Albumin 4.4 g/dL (3.5-5.0); Albumin Globulin Ratio 1.8 (1.0-2.8); Alkaline Phosphatase 58 U/L (38-126); Aspartate Aminotransferase 34 IU/L (17-59); BUN Creatinine Ratio 20.8 (6-22); Bilirubin Total 1.2 mg/dL (0.2-1.3); Blood Urea Nitrogen 22 mg/dL (9-20); Calcium 9.5 mg/dL (8.4-10.2); Carbon Dioxide 24 mmol/L (22-32); Chloride 106 mmol/L (98-107); Cholesterol 172 mg/dL (140-199); Estimated Glomerular Filt Rate > 60 mL/min (>60); Globulin 2.5 g/dL (1.7-4.1); Glucose 91 mg/dL (70-99); HDL Cholesterol 57 mg/dL (40-60); HEMOLYSIS < 15 (0-50); LDL Cholesterol Calculated 99 mg/dL (<100); Potassium 4.6 mmol/L (3.4-5.1); Sodium 139 mmol/L (137-145); Total Protein 6.9 g/dL (6.3-8.2); Triglycerides 79 mg/dL (35-150)
[2024-08-10 17:24] LABS: Thyroid Stimulating Hormone 4.23 uIU/mL (0.47-4.68)
[2024-08-12 07:09] LABS: PSA Free % 19.7 % (.); PSA, Total 3.9 ng/mL (0.0-4.0)
== END ==
PROVIDERS: PCP Family Medicine; Referring Provider Family Medicine; Visit Provider Family Medicine
DX: I10 Essential (primary) hypertension (principal); Z13.228 Encounter for screening for other metabolic disorders; E83.110 Hereditary hemochromatosis; Z13.0 Encounter for screening for diseases of the blood and blood-forming organs and certain disorders involving the immune mechanism; Z87.01 Personal history of pneumonia (recurrent)
CPT/HCPCS: 36415; 71046; 80053; 80061; 84153; 84154; 84443; 85027